=== PATIENT | male | born 2000 | race African-American/Black ===

== ENCOUNTER 2022-06-18 16:34 | Emergency (ER) | payer OTHER ==
[~2022-06-18] VITALS: Ht 182.9 cm; Wt 99.7 kg
[2022-06-18 16:34] VITALS: BP 136/71
[2022-06-18] MEDS ORDERED: KETO10TAB PO (17:54)
[2022-06-18] MEDS ORDERED: KETOROLAC TROMETHAMINE 10 MG TAB PO ONE (17:55)
== END 2022-06-18 18:34 | disposition home or self-care (01) ==
LOC: M ED 16:34
DX: S83.91XA Sprain of unspecified site of right knee, initial encounter (principal); M25.461 Effusion, right knee; Y93.67 Activity, basketball; Z79.1 Long term (current) use of non-steroidal anti-inflammatories (NSAID)

== ENCOUNTER 2022-11-22 13:56 | Emergency (ER) | payer OTHER ==
[~2022-11-22] VITALS: Ht 185.4 cm; Wt 100.5 kg
[~2022-11-22 13:56] MED LIST: KETO10TAB PO
[2022-11-22 13:57] VITALS: BP 123/60; TEMP 96.9; O2SAT 100
[2022-11-22] MEDS ORDERED: IBUP-1022 PO (16:51)
== END 2022-11-22 17:08 | disposition home or self-care (01) ==
LOC: M ED 13:56
DX: S80.911A Unspecified superficial injury of right knee, initial encounter (principal); Y92.410 Unspecified street and highway as the place of occurrence of the external cause; Y93.67 Activity, basketball; Y99.9 Unspecified external cause status